=== PATIENT | female | born 1940 | race Caucasian/White ===

== ENCOUNTER 2019-08-30 17:30 | Emergency (ER) | payer OTHER ==
[~2019-08-30] VITALS: Ht 154.9 cm; Wt 111.1 kg
[2019-08-30] MEDS ORDERED: HYDROmorphone HCL 2 MG/ML VL IV ONE (18:45)
[2019-08-30] MEDS ORDERED: ONDANSETRON HCL 4 MG/2 ML VIAL IV ONE (18:45)
[2019-08-30 20:05] LABS: Basophils # (auto) 0 10 ^3/uL (0-0.2); Basophils % (auto) 0.2 % (0.0-2.0); Eosinophils # (auto) 0 10 ^3/uL (0-0.8); Hematocrit 47.8 % (36.0-46.0); Hemoglobin 15.6 g/dL (12.2-16.2); Lymphocytes # (auto) 0.8 10 ^3/uL (0.4-5.4); Lymphocytes % (auto) 5.5 % (10.0-50.0); Mean Corpuscular Hgb Conc. 32.7 g/dL (32.0-36.0); Mean Corpuscular Volume 101.1 fL (80.0-100.0); Monocytes # (auto) 0.9 10 ^3/uL (0-1.3); Monocytes % (auto) 6.7 % (0.0-12.0); Neutrophils # (auto) 12.2 10 ^3/uL (1.6-8.6); Neutrophils % (auto) 87.6 % (37.0-80.0); Nucleated Red Blood Cells % 0.4 %; Platelet Count (auto) 204 10^3/uL (140-450); Red Blood Cells 4.73 10^6/uL (4.0-5.20); Red Cell Distribution Width 15.2 % (11.8-14.3)
[2019-08-30 20:21] LABS: Alanine Aminotransferase 18 U/L (13-56); Albumin 3.3 g/dL (3.4-5.0); Anion Gap 10 (5-15); Aspartate Aminotransferase 20 U/L (15-37); Carbon Dioxide 25 mmol/L (21-32); Chloride 101 mmol/L (98-107); Glucose 218 mg/dL (74-106); Potassium 4.2 mmol/L (3.5-5.1); Sodium 136 mmol/L (136-145)
[2019-08-30 20:26] LABS: Alkaline Phosphatase 71 U/L (45-117); BUN/Creatinine Ratio 26.3; Bilirubin, Total 0.9 mg/dL (0.2-1.0); Blood Urea Nitrogen 47 mg/dL (7-18); GFR African American 35 mL/min; GFR Non-African American 29 mL/min; Total Protein 7.7 g/dL (6.4-8.2)
[2019-08-30] MEDS ORDERED: ETOMIDATE (2MG/ML) 20ML VIAL IV ONE (20:30)
[2019-08-30 22:12] VITALS: BP 144/64
== END 2019-08-30 21:05 | disposition home or self-care (01) ==
LOC: EDBD 17:30 → ER 17:30
DX: S43.005A Unspecified dislocation of left shoulder joint, initial encounter (principal); S09.8XXA Other specified injuries of head, initial encounter; M19.90 Unspecified osteoarthritis, unspecified site; J44.9 Chronic obstructive pulmonary disease, unspecified; E11.9 Type 2 diabetes mellitus without complications; I10 Essential (primary) hypertension; X58.XXXA Exposure to other specified factors, initial encounter; Y93.89 Activity, other specified; Y92.89 Other specified places as the place of occurrence of the external cause; Y99.8 Other external cause status
CPT/HCPCS: 23650; 36415; 70450; 73030; 80053; 84484; 85025; 93005; 96374; 96375; 99285; J1170; J2405

== ENCOUNTER 2020-11-27 11:16 | Emergency (ER) | payer OTHER ==
[~2020-11-27] VITALS: Ht 152.4 cm; Wt 108.9 kg
[2020-11-27 11:49] LABS: Basophils # (auto) 0 10 ^3/uL (0-0.2); Basophils % (auto) 0.5 % (0.0-2.0); Hemoglobin 17.7 g/dL (12.2-16.2)
[2020-11-27 11:53] LABS: Eosinophils # (auto) 0 10 ^3/uL (0-0.8); Eosinophils % (auto) 0.5 % (0.0-7.0); Hematocrit 53.1 % (36.0-46.0); Lymphocytes # (auto) 1.3 10 ^3/uL (0.4-5.4); Lymphocytes % (auto) 16.2 % (10.0-50.0); Mean Corpuscular Hemoglobin 33.7 pg (28.0-32.0); Mean Corpuscular Hgb Conc. 33.3 g/dL (32.0-36.0); Monocytes # (auto) 0.8 10 ^3/uL (0-1.3); Neutrophils # (auto) 5.9 10 ^3/uL (1.6-8.6); Neutrophils % (auto) 72.8 % (37.0-80.0); Nucleated Red Blood Cells % 0.2 %; Red Blood Cells 5.26 10^6/uL (4.0-5.20); Red Cell Distribution Width 15.8 % (11.8-14.3); White Blood Cell 8.1 10^3/uL (4.4-10.8)
[2020-11-27 12:09] LABS: INR 1.03 (0.9-1.15); Partial Thromboplastin Time 26.8 sec (23.6-33.0)
[2020-11-27 12:14] LABS: Anion Gap 8 (5-15); Blood Urea Nitrogen 45 mg/dL (7-18); Calcium 8.8 mg/dL (8.5-10.1); Carbon Dioxide 28 mmol/L (21-32); Chloride 102 mmol/L (98-107); Glucose 123 mg/dL (74-106); Magnesium 2.4 mg/dL (1.6-2.6); Potassium 4.4 mmol/L (3.5-5.1); Sodium 138 mmol/L (136-145)
[2020-11-27 12:19] LABS: Alanine Aminotransferase 27 U/L (13-56); Alkaline Phosphatase 82 U/L (45-117); Aspartate Aminotransferase 32 U/L (15-37); BUN/Creatinine Ratio 24.7; Bilirubin, Total 1.3 mg/dL (0.2-1.0); GFR African American 35 mL/min; GFR Non-African American 29 mL/min; Total Protein 7.5 g/dL (6.4-8.2)
[2020-11-27 12:31] LABS: Urine Bacteria FEW /hpf (None Seen); Urine Blood 1+ /uL (Negative); Urine Specific Gravity 1.011 (1.001-1.035); Urine WBC 1 /hpf (0 - 5)
[2020-11-27] MEDS ORDERED: hydrALAZINE HCL 25 MG TAB PO ONE (12:45)
[2020-11-27] MEDS ORDERED: cloNIDine 0.1 mg/24hr 7 DAY PATCH TD ONE (12:45)
[2020-11-27] MEDS ORDERED: CARVEDILOL 3.125 MG TAB PO ONE (12:45)
[2020-11-27] MEDS ORDERED: FUROSEMIDE 20 MG/2 ML VIAL IV ONE ×2 (12:45→14:00)
[2020-11-27 16:00] VITALS: BP 136/78
[2020-11-29] MEDS ORDERED: ESTR1TAB6 PO (18:32)
== END 2020-11-27 16:49 | disposition home or self-care (01) ==
LOC: ER 11:16
DX: J44.1 Chronic obstructive pulmonary disease with (acute) exacerbation (principal); I11.0 Hypertensive heart disease with heart failure; I50.9 Heart failure, unspecified; E11.9 Type 2 diabetes mellitus without complications; Z20.822 Contact with and (suspected) exposure to COVID-19
CPT/HCPCS: 36415; 71045; 80053; 81001; 82010; 82962; 83735; 83880; 84484; 85025; 85610; 85730; 87426; 93005; 93306; 96374; 96376; 99291; J1940

== ENCOUNTER 2020-11-28 17:00 | Observation (INO) | payer OTHER ==
[~2020-11-28] VITALS: Ht 160 cm; Wt 122.5 kg
[2020-11-28] MEDS: levoFLOXacin 250MG 50 ML IV SCH (01:00)
[2020-11-28] MEDS ORDERED: IPRATROPIUM BROM 0.5 MG/2.5ML INH SOL NEB ONE (17:15)
[2020-11-28] MEDS ORDERED: FUROSEMIDE 40 MG/4 ML VIAL IV ONE (17:15)
[2020-11-28] MEDS ORDERED: MAGNESIUM SULFATE 1GM/100ML 100 ML IV ONE (17:15)
[2020-11-28] MEDS ORDERED: methylPREDNISolone SOD SUCC 125 MG/2 ML VL IV ONE (17:15)
[2020-11-28] MEDS ORDERED: ALBUTEROL SULF 2.5 MG/0.5ML(0.5%) NEB SOLN NEB ONE (17:15)
[2020-11-28 18:18] LABS: Basophils # (auto) 0 10 ^3/uL (0-0.2); Hematocrit 53.3 % (36.0-46.0); Lymphocytes # (auto) 1.8 10 ^3/uL (0.4-5.4); Nucleated Red Blood Cells % 0.1 %
[2020-11-28 18:20] LABS: Basophils % (auto) 0.4 % (0.0-2.0); Eosinophils # (auto) 0.1 10 ^3/uL (0-0.8); Eosinophils % (auto) 0.9 % (0.0-7.0); Hemoglobin 16.9 g/dL (12.2-16.2); Lymphocytes % (auto) 24.5 % (10.0-50.0); Mean Corpuscular Hemoglobin 32.8 pg (28.0-32.0); Mean Corpuscular Hgb Conc. 31.7 g/dL (32.0-36.0); Mean Corpuscular Volume 103.5 fL (80.0-100.0); Monocytes # (auto) 0.7 10 ^3/uL (0-1.3); Monocytes % (auto) 10.2 % (0.0-12.0); Neutrophils # (auto) 4.6 10 ^3/uL (1.6-8.6); Red Blood Cells 5.15 10^6/uL (4.0-5.20); Red Cell Distribution Width 16.3 % (11.8-14.3); White Blood Cell 7.3 10^3/uL (4.4-10.8)
[2020-11-28 18:26] LABS: Albumin 2.6 g/dL (3.4-5.0); Anion Gap 6 (5-15); BUN/Creatinine Ratio 24.9; Blood Urea Nitrogen 51 mg/dL (7-18); Calcium 8.4 mg/dL (8.5-10.1); Carbon Dioxide 30 mmol/L (21-32); Chloride 102 mmol/L (98-107); GFR African American 30 mL/min; GFR Non-African American 25 mL/min; Glucose 145 mg/dL (74-106); Potassium 4.5 mmol/L (3.5-5.1); Sodium 138 mmol/L (136-145)
[2020-11-28 18:27] LABS: Urine Bacteria FEW /hpf (None Seen); Urine Blood TRACE /uL (Negative); Urine Specific Gravity 1.017 (1.001-1.035); Urine WBC 1 /hpf (0 - 5)
[2020-11-28 18:29] LABS: Alanine Aminotransferase 24 U/L (13-56); Alkaline Phosphatase 73 U/L (45-117); Aspartate Aminotransferase 28 U/L (15-37); Bilirubin, Total 0.7 mg/dL (0.2-1.0); Total Protein 6.9 g/dL (6.4-8.2)
[2020-11-28 18:38] LABS: INR 1.05 (0.9-1.15); Partial Thromboplastin Time 28.3 sec (23.6-33.0)
[2020-11-28] MEDS ORDERED: NITROGLYCERIN 0.4 MG SL TAB SL PRN (22:00)
[2020-11-28] MEDS ORDERED: MORPHINE SULFATE INJECTION 2 MG/ML SYRG IV PRN (22:00)
[2020-11-28] MEDS ORDERED: ONDANSETRON HCL 4 MG/2 ML VIAL IV PRN (22:00)
[2020-11-28] MEDS ORDERED: MORPHINE SULFATE 4 MG/ML SYR/VIAL IV PRN (22:00)
[2020-11-28] MEDS: IPRATROPIUM BROM 0.5 MG/2.5ML INH SOL NEB SCH (22:00)
[2020-11-28] MEDS ORDERED: DEXTROSE (50%) 50ML SYRG IV PRN (22:00)
[2020-11-28] MEDS: ACCU-CHEK COMFORT CURVE STRIP VI SCH (22:26)
[2020-11-28] MEDS: methylPREDNISolone SOD SUCC 125 MG/2 ML VL IV SCH (22:30)
[2020-11-28] MEDS: InsuLIN REG 1unit/0.01ml Soln (100units/ml) SC SCH (22:30)
[2020-11-28] MEDS: PRAVASTATIN SODIUM 20 MG TAB PO SCH (22:30)
[2020-11-29] VITALS (7 sets, daily range): BP systolic 143–162; BP diastolic 80–96
[2020-11-29] MEDS ORDERED: ALPRAZolam 0.25 MG TAB PO PRN (00:30)
[2020-11-29] MEDS: IPRATROPIUM BROM 0.5 MG/2.5ML INH SOL NEB SCH ×7 (01:58→23:01)
[2020-11-29] MEDS ORDERED: FUROSEMIDE 20 MG TAB PO SCH (06:00)
[2020-11-29] MEDS ORDERED: FUROSEMIDE 40 MG/4 ML VIAL IV SCH (06:00)
[2020-11-29] MEDS: ALBUTEROL SULF 2.5 MG/0.5ML(0.5%) NEB SOLN NEB PRN ×5 (06:07→22:59)
[2020-11-29] MEDS: HEPARIN SODIUM (PORCINE) 5000 UNITS/ML 1ML VIAL SC SCH ×3 (06:45→22:12)
[2020-11-29] MEDS: methylPREDNISolone SOD SUCC 125 MG/2 ML VL IV SCH ×3 (06:45→22:11)
[2020-11-29] MEDS: ACCU-CHEK COMFORT CURVE STRIP VI SCH ×4 (07:00→22:13)
[2020-11-29] MEDS: InsuLIN REG 1unit/0.01ml Soln (100units/ml) SC SCH ×4 (07:00→22:13)
[2020-11-29 08:59] LABS: Basophils # (auto) 0 10 ^3/uL (0-0.2); Eosinophils # (auto) 0 10 ^3/uL (0-0.8); Eosinophils % (auto) 0.3 % (0.0-7.0); Lymphocytes # (auto) 0.6 10 ^3/uL (0.4-5.4); Monocytes # (auto) 0.1 10 ^3/uL (0-1.3)
[2020-11-29 09:01] LABS: Basophils % (auto) 0.8 % (0.0-2.0); Hemoglobin 17.6 g/dL (12.2-16.2); Mean Corpuscular Volume 103.3 fL (80.0-100.0); Monocytes % (auto) 2.6 % (0.0-12.0); Neutrophils # (auto) 2.6 10 ^3/uL (1.6-8.6); Neutrophils % (auto) 78.3 % (37.0-80.0); Nucleated Red Blood Cells % 0.3 %; Red Blood Cells 5.33 10^6/uL (4.0-5.20); Red Cell Distribution Width 16.2 % (11.8-14.3); White Blood Cell 3.3 10^3/uL (4.4-10.8)
[2020-11-29 09:04] LABS: BUN/Creatinine Ratio 24.8; Potassium 5.4 mmol/L (3.5-5.1)
[2020-11-29 09:15] LABS: Calcium 8.7 mg/dL (8.5-10.1)
[2020-11-29] MEDS: ATENOLOL 50 MG TAB PO SCH (09:40)
[2020-11-29] MEDS: amLODIPine BESYLATE 5 MG TAB PO SCH (09:42)
[2020-11-29] MEDS ORDERED: FUROSEMIDE 40 MG/4 ML VIAL IV ONE (11:30)
[2020-11-29] MEDS ORDERED: LOSA-39 PO (18:32)
[2020-11-29] MEDS ORDERED: ATEN100T PO (18:32)
[2020-11-29] MEDS ORDERED: GLIP5TAB12 PO (18:32)
[2020-11-29] MEDS ORDERED: FURO40TA4 PO (18:32)
[2020-11-29] MEDS ORDERED: MOME200A PO (18:32)
[2020-11-29] MEDS ORDERED: LATA0.0019 EACHEYE (18:32)
[2020-11-29] MEDS ORDERED: AMLO-489 PO (18:32)
[2020-11-29] MEDS ORDERED: HYDR-4795 (18:32)
[2020-11-29] MEDS ORDERED: ESTR1TAB3 PO (18:32)
[2020-11-29] MEDS ORDERED: PRAV20TA3 PO (18:34)
[2020-11-29] MEDS ORDERED: LACTULOSE 20Gm/30ML SOLN PO ONE (19:30)
[2020-11-29] MEDS: levoFLOXacin 250MG 50 ML IV SCH (22:11)
[2020-11-29] MEDS: PRAVASTATIN SODIUM 20 MG TAB PO SCH (22:12)
[2020-11-30 05:00] VITALS: BP 157/99
[2020-11-30] MEDS: InsuLIN REG 1unit/0.01ml Soln (100units/ml) SC SCH (06:00)
[2020-11-30] MEDS: HEPARIN SODIUM (PORCINE) 5000 UNITS/ML 1ML VIAL SC SCH (06:01)
[2020-11-30] MEDS: ACCU-CHEK COMFORT CURVE STRIP VI SCH (06:02)
[2020-11-30] MEDS: methylPREDNISolone SOD SUCC 125 MG/2 ML VL IV SCH (06:02)
[2020-11-30 06:44] LABS: Basophils # (auto) 0 10 ^3/uL (0-0.2); Eosinophils # (auto) 0 10 ^3/uL (0-0.8); Monocytes # (auto) 0.3 10 ^3/uL (0-1.3); Neutrophils # (auto) 5.4 10 ^3/uL (1.6-8.6); Red Cell Distribution Width 15.8 % (11.8-14.3)
[2020-11-30 06:47] LABS: Basophils % (auto) 0.2 % (0.0-2.0); Hematocrit 54.5 % (36.0-46.0); Hemoglobin 17.7 g/dL (12.2-16.2); Lymphocytes # (auto) 0.4 10 ^3/uL (0.4-5.4); Lymphocytes % (auto) 6.5 % (10.0-50.0); Mean Corpuscular Hemoglobin 33.6 pg (28.0-32.0); Mean Corpuscular Hgb Conc. 32.4 g/dL (32.0-36.0); Mean Corpuscular Volume 103.7 fL (80.0-100.0); Monocytes % (auto) 4.8 % (0.0-12.0); Neutrophils % (auto) 88.5 % (37.0-80.0); Nucleated Red Blood Cells % 0.1 %; Red Blood Cells 5.26 10^6/uL (4.0-5.20)
[2020-11-30] MEDS: ALBUTEROL SULF 2.5 MG/0.5ML(0.5%) NEB SOLN NEB PRN ×3 (06:58→11:43)
[2020-11-30] MEDS: IPRATROPIUM BROM 0.5 MG/2.5ML INH SOL NEB SCH ×3 (06:59→10:42)
[2020-11-30 07:03] LABS: Calcium 8.8 mg/dL (8.5-10.1); Potassium 4.3 mmol/L (3.5-5.1)
[2020-11-30 07:06] LABS: BUN/Creatinine Ratio 27.4
[2020-11-30] MEDS: amLODIPine BESYLATE 5 MG TAB PO SCH (09:06)
[2020-11-30] MEDS: ATENOLOL 50 MG TAB PO SCH (09:06)
== END 2020-11-30 11:13 | disposition home or self-care (01) ==
LOC: ER 17:00 → TELE 21:53 → TELE-CENTR 11-29 11:59
PROVIDERS: ADMIT Hospitalist; ATTEND Hospitalist
DX: J44.1 Chronic obstructive pulmonary disease with (acute) exacerbation (principal); Z20.822 Contact with and (suspected) exposure to COVID-19; J96.92 Respiratory failure, unspecified with hypercapnia; I13.0 Hypertensive heart and chronic kidney disease with heart failure and stage 1 through stage 4 chronic kidney disease, or unspecified chronic kidney disease; E11.22 Type 2 diabetes mellitus with diabetic chronic kidney disease; I50.30 Unspecified diastolic (congestive) heart failure; N18.9 Chronic kidney disease, unspecified; N17.9 Acute kidney failure, unspecified; E78.5 Hyperlipidemia, unspecified; E66.01 Morbid (severe) obesity due to excess calories; M19.90 Unspecified osteoarthritis, unspecified site; I71.2 Thoracic aortic aneurysm, without rupture; J98.11 Atelectasis; I27.81 Cor pulmonale (chronic); Z87.891 Personal history of nicotine dependence; Z68.41 Body mass index [BMI] 40.0-44.9, adult; Z91.19 Patient's noncompliance with other medical treatment and regimen; Z79.899 Other long term (current) drug therapy
CPT/HCPCS: 36415; 36600; 71045; 71250; 80048; 80053; 81001; 82805; 82962; 83735; 83880; 84484; 85025; 85610; 85730; 87426; 93005; 94640; 94660; 96365; 96366; 96367; 96372; 96375; 96376; 99291; G0378; J1644; J1815; J1940; J1956; J2930; J3475; J7030; J7644

== ENCOUNTER 2020-12-07 12:42 | Emergency (ER) | payer OTHER ==
[~2020-12-07] VITALS: Ht 152.4 cm; Wt 104.3 kg
[~2020-12-07 12:42] MED LIST: AMLO-489 PO; ATEN100T PO; ESTR1TAB6 PO; FURO40TA4 PO; GLIP5TAB12 PO; HYDR-4795; LATA0.0019 EACHEYE; LOSA-39 PO; MOME200A PO; PRAV20TA3 PO
[2020-12-07] MEDS ORDERED: OXYMETAZOLINE HCL 0.05 % NASAL SPRAY 15ML EACHNOSTRI ONE (13:00)
[2020-12-07 13:19] LABS: Basophils # (auto) 0 10 ^3/uL (0-0.2); Eosinophils # (auto) 0.1 10 ^3/uL (0-0.8); Hemoglobin 18.6 g/dL (12.2-16.2); Lymphocytes # (auto) 1.2 10 ^3/uL (0.4-5.4); Lymphocytes % (auto) 14.5 % (10.0-50.0); Neutrophils # (auto) 6.1 10 ^3/uL (1.6-8.6)
[2020-12-07 13:21] LABS: Basophils % (auto) 0.2 % (0.0-2.0); Eosinophils % (auto) 0.8 % (0.0-7.0); Mean Corpuscular Hemoglobin 33.5 pg (28.0-32.0); Mean Corpuscular Hgb Conc. 32.8 g/dL (32.0-36.0); Neutrophils % (auto) 72.5 % (37.0-80.0); Nucleated Red Blood Cells % 0.3 %; Red Blood Cells 5.56 10^6/uL (4.0-5.20); Red Cell Distribution Width 15.2 % (11.8-14.3); White Blood Cell 8.4 10^3/uL (4.4-10.8)
[2020-12-07 13:25] LABS: Hematocrit 56.8 % (36.0-46.0)
[2020-12-07 13:32] LABS: INR 1.07 (0.9-1.15)
[2020-12-07 13:35] LABS: Calcium 9.2 mg/dL (8.5-10.1)
[2020-12-07 13:38] LABS: BUN/Creatinine Ratio 30.7; Bilirubin, Total 1.7 mg/dL (0.2-1.0); Total Protein 6.8 g/dL (6.4-8.2)
[2020-12-07] MEDS ORDERED: cloNIDine HCL 0.1 MG TAB PO ONE (17:00)
[2020-12-07 17:55] VITALS: BP 152/79
== END 2020-12-07 18:27 | disposition home or self-care (01) ==
LOC: ER 12:42 → EDBD 12:42 → ER 18:27
DX: S00.33XA Contusion of nose, initial encounter (principal); R04.0 Epistaxis; J44.9 Chronic obstructive pulmonary disease, unspecified; E11.9 Type 2 diabetes mellitus without complications; I11.0 Hypertensive heart disease with heart failure; I50.9 Heart failure, unspecified; Z79.899 Other long term (current) drug therapy; X58.XXXA Exposure to other specified factors, initial encounter; Y93.89 Activity, other specified; Y92.89 Other specified places as the place of occurrence of the external cause; Y99.8 Other external cause status
CPT/HCPCS: 36415; 80053; 85025; 85610; 93005